=== PATIENT | female | born 1960 | race African-American/Black ===

== ENCOUNTER 2016-11-22 02:21 | Emergency (ER) | payer OTHER ==
[~2016-11-22] VITALS: Ht 180.3 cm; Wt 99.0 kg
[~2016-11-22 02:21] MED LIST: AMLO10TA80 PO; ASPI-1158 PO; ATOR10TA69 PO; CLON0.2T PO; FURO20TA4 PO; HYDR-4134 PO; LOSA100T14 PO; POTA-9 PO
[2016-11-22 03:03] LABS: HEMATOCRIT. 27.9 % (36.0-48.0); HEMOGLOBIN. 9.2 g/dL (12.0-16.0); MEAN CORPUSCULAR HEMOGLOBIN 29.7 pg (28.0-32.0); MEAN CORPUSCULAR VOLUME 89.9 fL (81.0-99.0); PLATELET 206 x1000/uL (130-400); RED CELL DISTRIBUTION WIDTH 14.8 % (11.6-14.6)
[2016-11-22 03:07] LABS: INR 1.1; PROTHROMBIN TIME 11.1 sec (9.4-11.6)
[2016-11-22 03:15] LABS: CARBON DIOXIDE 29 mEq/L (21-32); CHLORIDE 109 mEq/L (98-107)
[2016-11-22 03:51] LABS: CLARITY URINE CLOUDY (CLEAR); COLOR URINE YELLOW (YELLOW); GLUCOSE URINE NEGATIVE (NEGATIVE); KETONES URINE NEGATIVE (NEGATIVE); LEUKOCYTE ESTERASE URINE NEGATIVE (NEGATIVE); NITRITE URINE NEGATIVE (NEGATIVE); OCCULT BLOOD URINE 1+ (NEGATIVE); PH URINE 5.5 (4.5-8.0); PROTEIN URINE 4+ (NEGATIVE); SPECIFIC GRAVITY URINE 1.019 (1.005-1.030); UROBILINOGEN URINE 0.2 E.U./dL (0.2-1.0)
[2016-11-22] MEDS ORDERED: IBUPROFEN 600MG TABLET PO ONE (04:00)
[2016-11-22 04:16] LABS: PLATELET ESTIMATE NORMAL
[2016-11-22 04:52] VITALS: BP 162/87
== END 2016-11-22 04:55 | disposition home or self-care (01) ==
LOC: ER 02:35
DX: R05 Cough (principal); R50.9 Fever, unspecified; R51 Headache; R09.3 Abnormal sputum; I11.0 Hypertensive heart disease with heart failure; I50.9 Heart failure, unspecified; J45.909 Unspecified asthma, uncomplicated; Z88.0 Allergy status to penicillin; Z79.82 Long term (current) use of aspirin
CPT/HCPCS: 36415; 71010; 80053; 81001; 83605; 83880; 85025; 85610; 87040; 93005; 99285; Z7610

== ENCOUNTER 2020-06-08 19:39 | Inpatient (IN) | payer BC, OTHER ==
[~2020-06-08] VITALS: Ht 180.3 cm; Wt 117.9 kg
[~2020-06-08 19:39] MED LIST changes: -ASPI-1158 PO; +ASPI-1406 PO; -LOSA100T14 PO; +LOSA100T32 PO
[2020-06-08 20:43] LABS: CLARITY URINE CLEAR (CLEAR); COLOR URINE YELLOW (YELLOW); KETONES URINE NEGATIVE (NEGATIVE); LEUKOCYTE ESTERASE URINE NEGATIVE (NEGATIVE); NITRITE URINE NEGATIVE (NEGATIVE); OCCULT BLOOD URINE NEGATIVE (NEGATIVE); PROTEIN URINE 2+ (NEGATIVE); SPECIFIC GRAVITY URINE 1.016 (1.005-1.030); UROBILINOGEN URINE 0.2 E.U./dL (0.2-1.0)
[2020-06-08] MEDS ORDERED: FAMOTIDINE 20MG TABLET PO SCH (21:45)
[2020-06-08] MEDS ORDERED: TRAMADOL HCL/ACETAMINOPHEN 37.5/325MG TABLET PO ONE (23:00)
[2020-06-09 08:00] VITALS: BP 124/64
[2020-06-09 10:00] VITALS: BP 124/64
[2020-06-09] MEDS ORDERED: NITROGLYCERIN 0.4MG TABLET SL SL PRN (10:30)
[2020-06-09] MEDS ORDERED: HYDROCODONE/ACETAMINOPHEN 5/325MG TABLET PO PRN (10:30)
[2020-06-09] MEDS: ASPIRIN 81MG TABLET PO SCH (10:59)
[2020-06-09] MEDS ORDERED: FERR325T6 MT (11:38)
[2020-06-09] MEDS ORDERED: CIPR500S3 PO (11:38)
[2020-06-09] MEDS ORDERED: FOLI0.8T23 PO (11:38)
[2020-06-09 12:00] VITALS: BP 136/58
[2020-06-09 12:41] LABS: BASOPHILS % 0.3 % (0.0-2.0); EOSINOPHILS % 0.6 % (0.0-5.0); HEMATOCRIT. 31.6 % (36.0-48.0); HEMOGLOBIN. 10.4 g/dL (12.0-16.0); LYMPHOCYTES % 18.6 % (20.0-50.0); MEAN CORPUSCULAR HEMOGLOBIN 29.4 pg (28.0-32.0); MEAN CORPUSCULAR VOLUME 89.7 fL (81.0-99.0); MEAN PLATELET VOLUME 8.4 fl (7.4-10.4); MONOCYTES % 5.7 % (2.0-8.0); NEUTROPHILS % 74.8 % (40.0-76.0); PLATELET 200 x1000/uL (130-400); RED BLOOD CELL COUNT 3.52 mill/uL (4.2-5.4); RED CELL DISTRIBUTION WIDTH 15.2 % (11.6-14.6)
[2020-06-09 12:49] LABS: INR 1.1
[2020-06-09 13:08] LABS: CHLORIDE 106 mEq/L (98-107)
[2020-06-09 13:20] LABS: CREATINE KINASE 107 IU/L (26-192)
[2020-06-09 13:31] LABS: CREATINE KINASE MB FRACTION < 1.0 ng/mL (0.5-3.6)
[2020-06-09] MEDS ORDERED: POTASSIUM CHLORIDE 20MEQ/PACKET PO SCH (14:15)
[2020-06-09] MEDS ORDERED: REGADENOSON 0.4 MG/5 ML IV SCH (14:15)
[2020-06-09 16:00] VITALS: BP 144/73
[2020-06-09] MEDS ORDERED: BISACODYL 10MG SUPP PR PRN (17:30)
[2020-06-09] MEDS ORDERED: HYDRALAZINE 20MG/ML VIAL IV PRN (17:30)
[2020-06-09] MEDS ORDERED: ACETAMINOPHEN 650MG SUPP PR PRN (17:30)
[2020-06-09] MEDS ORDERED: IPRATROPIUM/ALBUTEROL 0.5-3(2.5)MG/3ML NEB HHN PRN (17:30)
[2020-06-09] MEDS ORDERED: ACETAMINOPHEN 325MG TABLET PO PRN (17:30)
[2020-06-09] MEDS ORDERED: LORAZEPAM 2MG/ML CPJ IV PRN (17:30)
[2020-06-09 19:11] LABS: *AMPHETAMINES SCREEN URINE NEGATIVE (NEGATIVE)
[2020-06-09 19:12] LABS: *BARBITURATES SCREEN URINE NEGATIVE (NEGATIVE); *BENZODIAZEPINES SCREEN URINE NEGATIVE (NEGATIVE); *COCAINE SCREEN URINE NEGATIVE (NEGATIVE); CANNABINOID URINE SCREEN NEGATIVE (NEGATIVE); METHADONE URINE SCREEN NEGATIVE (NEGATIVE); OPIATES URINE SCREEN NEGATIVE (NEGATIVE); PHENCYCLIDINE URINE SCREEN NEGATIVE (NEGATIVE)
[2020-06-09 20:00] VITALS: BP 102/57
[2020-06-09] MEDS ORDERED: FAMOTIDINE 20MG TABLET PO SCH (21:00)
[2020-06-10] VITALS: BP 113/68
[2020-06-10] MEDS ORDERED: DEXT 5%/0.45% NACL 1000ML 1,000 ML IV SCH
[2020-06-10 04:00] VITALS: BP 120/69
[2020-06-10 06:52] LABS: BASOPHILS % 0.6 % (0.0-2.0); EOSINOPHILS % 2.5 % (0.0-5.0); HEMATOCRIT. 32.3 % (36.0-48.0); HEMOGLOBIN. 10.6 g/dL (12.0-16.0); LYMPHOCYTES % 29.9 % (20.0-50.0); MEAN CORPUSCULAR HEMOGLOBIN 29.4 pg (28.0-32.0); MEAN CORPUSCULAR VOLUME 89.7 fL (81.0-99.0); MEAN PLATELET VOLUME 8.9 fl (7.4-10.4); MONOCYTES % 7.2 % (2.0-8.0); NEUTROPHILS % 59.8 % (40.0-76.0); PLATELET 207 x1000/uL (130-400); RED CELL DISTRIBUTION WIDTH 15.3 % (11.6-14.6)
[2020-06-10 06:57] LABS: CHLORIDE 106 mEq/L (98-107)
[2020-06-10 08:00] VITALS: BP 117/68
[2020-06-10] MEDS ORDERED: REGADENOSON 0.4 MG/5 ML IV ONE (11:31)
[2020-06-10] MEDS: ASPIRIN 81MG TABLET PO SCH (13:12)
[2020-06-10 16:00] VITALS: BP 128/74
[2020-06-10 16:19] VITALS: BP 128/74
== END 2020-06-10 16:55 | disposition home or self-care (01) | DRG 291 ==
LOC: ER 19:39 → EDBEDREQTM 06-09 01:44 → EDBEDREQ 06-09 01:44 → ENRESERV 06-09 07:15 → 8WST 06-09 08:02
PROVIDERS: ADMIT Internal Medicine; ATTEND Internal Medicine
DX: I13.0 Hypertensive heart and chronic kidney disease with heart failure and stage 1 through stage 4 chronic kidney disease, or unspecified chronic kidney disease (principal); I50.33 Acute on chronic diastolic (congestive) heart failure; D25.9 Leiomyoma of uterus, unspecified; I20.9 Angina pectoris, unspecified; D64.9 Anemia, unspecified; K21.9 Gastro-esophageal reflux disease without esophagitis; K46.9 Unspecified abdominal hernia without obstruction or gangrene; K57.90 Diverticulosis of intestine, part unspecified, without perforation or abscess without bleeding; N18.9 Chronic kidney disease, unspecified; Z20.822 Contact with and (suspected) exposure to COVID-19; Z79.82 Long term (current) use of aspirin; Z79.899 Other long term (current) drug therapy; Z87.441 Personal history of nephrotic syndrome; Z88.0 Allergy status to penicillin
CPT/HCPCS: 36415; 71250; 74176; 78452; 80048; 80053; 80305; 81003; 82550; 82553; 84484; 85025; 87426; 93005; 93017; 93306; 93970; 99285; A9500; J0360; J2785